=== PATIENT | female | born 1950 | race Hispanic/Latino ===

== ENCOUNTER 2019-08-13 17:35 | Observation (INO) | payer MEDICARE, MEDICAID ==
[~2019-08-13] VITALS: Ht 152.4 cm; Wt 77.3 kg
[2019-08-13] MEDS ORDERED: METFORMIN1000 MG PO (18:00)
[2019-08-13] MEDS ORDERED: MECLIZINE25 M2 PO (18:01)
[2019-08-13] MEDS ORDERED: GABAPENTIN300 M2 PO (18:01)
[2019-08-13] MEDS ORDERED: ZESTRIL5 M1 PO (18:01)
[2019-08-13] MEDS ORDERED: LIPITOR80 M1 PO (18:01)
[2019-08-13 18:02] LABS: HEMATOCRIT 44.8 % (37.0-47.0); HEMOGLOBIN 14.4 g/dl (12.0-16.0); IMMATURE GRANULOCYTES 0.2 % (0.0-5.0); MEAN CELL VOLUME 88.4 fL CALC (80.0-100.0); MEAN CORPUSCULAR HGB 28.4 pG CALC (26.0-32.0); MEAN CORPUSCULAR HGB CONC 32.1 g/L CALC (32.0-36.0); NEUT# 4.75 thou/uL (2.00-7.15); RED BLOOD COUNT 5.07 mill/uL (4.20-5.60); RED CELL DISTRI WIDTH 13.5 % (11.5-15.5)
[2019-08-13] MEDS ORDERED: ASPIRIN 81 LOW81 MG PO (18:02)
[2019-08-13] MEDS ORDERED: LEVO-T88 MCG PO (18:02)
[2019-08-13] MEDS ORDERED: NOVOLO1 SC (18:04)
[2019-08-13] MEDS ORDERED: TRULICITY1.5 MG/0.5 IJ (18:04)
[2019-08-13 18:31] LABS: ALBUMIN 4.1 g/dL (3.2-5.0); ALKALINE PHOSPHATASE 117 u/l (38-126); ANION GAP 17 (6-22 (CALC)); BILIRUBIN, TOTAL 0.4 mg/dL (0.0-1.4); BUN 13 mg/dL (8-23); BUN/CREATININE RATIO 22 (12-20 (CALC)); CARBON DIOXIDE 25 mmol/l (22-30); CHLORIDE 94 mmol/l (95-108); CREATININE 0.6 mg/dL (0.5-1.0); GFR > 60 ML/MIN (>=60 (CALC)); GFR FOR AFR.AMER. > 60 ML/MIN (>=60 (CALC)); LIPASE 247 u/l (23-300); POTASSIUM 4.3 mmol/l (3.5-5.1); SGOT/AST 21 u/l (9-36); SODIUM 132 mmol/l (137-146)
[2019-08-13 23:55] VITALS: BP 163/96
[2019-08-14 01:00] VITALS: BP 138/74
[2019-08-14 04:25] VITALS: BP 117/69
[2019-08-14 08:00] VITALS: BP 127/71
[2019-08-14 09:59] LABS: URINE BILIRUBIN - DIPSTICK NEGATIVE (NEGATIVE); URINE BLOOD DIPSTICK NEGATIVE (NEGATIVE); URINE COLOR YELLOW; URINE GLUCOSE - DIPSTICK >=1000 mg/dL (NEGATIVE); URINE KETONE NEGATIVE (NEGATIVE); URINE LEUK ESTERASE NEGATIVE (NEGATIVE); URINE NITRITE - DIPSTICK NEGATIVE (Negative); URINE PROTEIN - DIPSTICK NEGATIVE (NEG-TRACE); URINE SPECIFIC GRAVITY <=1.005; URINE UROBILINOGEN - DIPSTICK 0.2 E.U./dL (0.2)
[2019-08-14 12:00] VITALS: BP 121/70
[2020-01-31] MEDS ORDERED: CRANBERR3 PO (16:58)
[2020-01-31] MEDS ORDERED: VITAMIN7 PO (16:59)
[2020-01-31] MEDS ORDERED: PREGABALIN150 MG PO (17:00)
[2020-03-24] MEDS ORDERED: SYSTANE CONTACTS SOO OU (11:12)
[2020-03-24] MEDS ORDERED: ZADITOR0.025 % OU (11:13)
[2020-03-24] MEDS ORDERED: AZELASTINE0.1 % (11:14)
[2020-03-24] MEDS ORDERED: METAMUCIL1.7 G1 PO (11:15)
[2020-03-24] MEDS ORDERED: SOLIFENACIN SUCC5 MG PO (11:16)
== END 2019-08-14 13:00 | disposition home or self-care (01) ==
LOC: ED 17:35 → ED-I 22:56 → ED 23:09 → ICU 23:10
PROVIDERS: Family Medicine; ADMIT Internal Medicine; ATTEND Internal Medicine
DX: R07.9 Chest pain, unspecified (principal); I10 Essential (primary) hypertension; E11.40 Type 2 diabetes mellitus with diabetic neuropathy, unspecified; E78.5 Hyperlipidemia, unspecified; E03.9 Hypothyroidism, unspecified; Z79.4 Long term (current) use of insulin; Z79.82 Long term (current) use of aspirin
CPT/HCPCS: J1650; Q9967

== ENCOUNTER 2019-08-26 16:12 | Emergency (ER) | payer MEDICARE, MEDICAID ==
[~2019-08-26 16:12] MED LIST: ASPIRIN 81 LOW81 MG PO; GABAPENTIN300 M2 PO; LEVO-T88 MCG PO; LIPITOR80 M1 PO; MECLIZINE25 M2 PO; METFORMIN1000 MG PO; NOVOLO1 SC; TRULICITY1.5 MG/0.5 IJ; ZESTRIL5 M1 PO
[2019-08-26 17:01] VITALS: BP 119/76
[2020-01-31] MEDS ORDERED: CRANBERR3 PO (16:58)
[2020-01-31] MEDS ORDERED: VITAMIN7 PO (16:59)
[2020-01-31] MEDS ORDERED: PREGABALIN150 MG PO (17:00)
[2020-03-24] MEDS ORDERED: SYSTANE CONTACTS SOO OU (11:12)
[2020-03-24] MEDS ORDERED: ZADITOR0.025 % OU (11:13)
[2020-03-24] MEDS ORDERED: AZELASTINE0.1 % (11:14)
[2020-03-24] MEDS ORDERED: METAMUCIL1.7 G1 PO (11:15)
[2020-03-24] MEDS ORDERED: SOLIFENACIN SUCC5 MG PO (11:16)
== END 2019-08-26 17:20 | disposition home or self-care (01) ==
LOC: ED 16:12
DX: R05 Cough (principal); E11.9 Type 2 diabetes mellitus without complications; I10 Essential (primary) hypertension; Z79.4 Long term (current) use of insulin

== ENCOUNTER 2020-01-19 11:37 | Emergency (ER) | payer MEDICARE, MEDICAID ==
[~2020-01-19] VITALS: Ht 152.4 cm; Wt 80.0 kg
[2020-01-19] MEDS ORDERED: GABAPENTIN300 M2 PO (11:59)
[2020-01-19] MEDS ORDERED: JARDIANCE10 MG PO (11:59)
[2020-01-19] MEDS ORDERED: OXYBUTYNIN CHLOR5 M1 PO (12:00)
[2020-01-19] MEDS ORDERED: MELATONIN5 MG PO (12:00)
[2020-01-19] MEDS ORDERED: OMEPRAZOLE DR20 MG PO (12:01)
[2020-01-19] MEDS ORDERED: TRULICITY1.5 MG/0.5 IN (12:03)
[2020-01-19] MEDS ORDERED: TRESIBA FL100 UNIT/M IJ (12:04)
[2020-01-19 12:35] LABS: HEMATOCRIT 45.5 % (37.0-47.0); HEMOGLOBIN 14.4 g/dl (12.0-16.0); IMMATURE GRANULOCYTES 0.2 % (0.0-5.0); MEAN CELL VOLUME 87.8 fL CALC (80.0-100.0); MEAN CORPUSCULAR HGB 27.8 pG CALC (26.0-32.0); MEAN CORPUSCULAR HGB CONC 31.6 g/dL CAL (32.0-36.0); NEUT# 2.57 thou/uL (2.00-7.15); RED BLOOD COUNT 5.18 mill/uL (4.20-5.60); RED CELL DISTRI WIDTH 13.4 % (11.5-15.5)
[2020-01-19 12:39] LABS: URINE BILIRUBIN - DIPSTICK NEGATIVE (NEGATIVE); URINE BLOOD DIPSTICK NEGATIVE (NEGATIVE); URINE COLOR YELLOW; URINE GLUCOSE - DIPSTICK >=1000 mg/dL (NEGATIVE); URINE KETONE NEGATIVE (NEGATIVE); URINE LEUK ESTERASE NEGATIVE (NEGATIVE); URINE NITRITE - DIPSTICK NEGATIVE (Negative); URINE PROTEIN - DIPSTICK NEGATIVE (NEG-TRACE); URINE UROBILINOGEN - DIPSTICK 0.2 E.U./dL (0.2)
[2020-01-19 12:53] LABS: ALBUMIN 4.3 g/dL (3.2-5.0); ALKALINE PHOSPHATASE 116 u/l (38-126); ANION GAP 13 (6-22 (CALC)); BILIRUBIN, TOTAL 0.3 mg/dL (0.0-1.4); BUN 8 mg/dL (8-23); BUN/CREATININE RATIO 11 (12-20 (CALC)); CARBON DIOXIDE 27 mmol/l (22-30); CHLORIDE 96 mmol/l (95-108); CREATININE 0.7 mg/dL (0.5-1.0); GFR > 60 ML/MIN (>=60 (CALC)); GFR FOR AFR.AMER. > 60 ML/MIN (>=60 (CALC)); LIPASE 139 u/l (23-300); POTASSIUM 4.2 mmol/l (3.5-5.1); SGOT/AST 28 u/l (9-36); SODIUM 131 mmol/l (137-146); TOTAL PROTEIN 7.3 g/dL (6.3-8.2)
[2020-01-19] MEDS ORDERED: MIRALAX3350 N1 PO ×2 (14:36)
[2020-01-19 15:11] VITALS: BP 104/81
[2020-01-31] MEDS ORDERED: CRANBERR3 PO (16:58)
[2020-01-31] MEDS ORDERED: VITAMIN7 PO (16:59)
[2020-01-31] MEDS ORDERED: PREGABALIN150 MG PO (17:00)
[2020-03-24] MEDS ORDERED: SYSTANE CONTACTS SOO OU (11:12)
[2020-03-24] MEDS ORDERED: ZADITOR0.025 % OU (11:13)
[2020-03-24] MEDS ORDERED: AZELASTINE0.1 % (11:14)
[2020-03-24] MEDS ORDERED: METAMUCIL1.7 G1 PO (11:15)
[2020-03-24] MEDS ORDERED: SOLIFENACIN SUCC5 MG PO (11:16)
== END 2020-01-19 15:11 | disposition home or self-care (01) ==
LOC: ED 11:37
PROVIDERS: Family Medicine
DX: R10.12 Left upper quadrant pain (principal); E11.9 Type 2 diabetes mellitus without complications; I10 Essential (primary) hypertension; Z79.4 Long term (current) use of insulin
CPT/HCPCS: Q9967

== ENCOUNTER 2020-05-22 01:27 | Observation (INO) | payer MEDICARE, MEDICAID ==
[~2020-05-22] VITALS: Ht 152.4 cm; Wt 77.1 kg
[~2020-05-22 01:27] MED LIST changes: +AZELASTINE0.1 %; +CRANBERR3 PO; +JARDIANCE10 MG PO; +MELATONIN5 MG PO; +METAMUCIL1.7 G1 PO; +METFORMIN HCL1000 MG PO; -METFORMIN1000 MG PO; +MIRALAX3350 N1 PO; +OMEPRAZOLE DR20 MG PO; +OXYBUTYNIN CHLOR5 M1 PO; +PREGABALIN150 MG PO; +SOLIFENACIN SUCC5 MG PO; +SYSTANE CONTACTS SOO OU; +TRESIBA FL100 UNIT/M IJ; +TRULICITY1.5 MG/0.5 IN; +VITAMIN7 PO; +ZADITOR0.025 % OU
--- NOTE | 2020-05-22 01:31 | NUR ---
PATIENT TO ROOM 9 FOR BEDSIDE TRIAGE.
[2020-05-22 02:23] LABS: URINE BILIRUBIN - DIPSTICK NEGATIVE (NEGATIVE); URINE BLOOD DIPSTICK NEGATIVE (NEGATIVE); URINE COLOR YELLOW; URINE GLUCOSE - DIPSTICK >=1000 mg/dL (NEGATIVE); URINE KETONE NEGATIVE (NEGATIVE); URINE LEUK ESTERASE NEGATIVE (NEGATIVE); URINE NITRITE - DIPSTICK NEGATIVE (Negative); URINE PROTEIN - DIPSTICK NEGATIVE (NEG-TRACE); URINE UROBILINOGEN - DIPSTICK 0.2 E.U./dL (0.2)
[2020-05-22 02:24] LABS: HEMATOCRIT 40.9 % (37.0-47.0); HEMOGLOBIN 13.3 g/dl (12.0-16.0); IMMATURE GRANULOCYTES 0.3 % (0.0-5.0); MEAN CELL VOLUME 86.3 fL CALC (80.0-100.0); MEAN CORPUSCULAR HGB 28.1 pG CALC (26.0-32.0); MEAN CORPUSCULAR HGB CONC 32.5 g/dL CAL (32.0-36.0); NEUT# 4.12 thou/uL (2.00-7.15); RED BLOOD COUNT 4.74 mill/uL (4.20-5.60); RED CELL DISTRI WIDTH 13.8 % (11.5-15.5)
[2020-05-22 02:39] LABS: ACT PARTIAL THROMBO TIME 22.6 SECONDS (20.0-32.5); ALBUMIN 3.9 g/dL (3.2-5.0); ALKALINE PHOSPHATASE 110 u/l (38-126); AMYLASE 125 u/l (30-110); ANION GAP 12 (6-22 (CALC)); BILIRUBIN, TOTAL 0.3 mg/dL (0.0-1.4); BUN 16 mg/dL (8-23); BUN/CREATININE RATIO 21 (12-20 (CALC)); CARBON DIOXIDE 27 mmol/l (22-30); CHLORIDE 98 mmol/l (95-108); CREATININE 0.8 mg/dL (0.5-1.0); GFR > 60 ML/MIN (>=60 (CALC)); GFR FOR AFR.AMER. > 60 ML/MIN (>=60 (CALC)); INTERNATIONAL NORMALIZED RATIO 0.9 RATIO (0.7-1.3); LIPASE 916 u/l (23-300); POTASSIUM 4.3 mmol/l (3.5-5.1); PROTHROMBIN TIME 9.3 SECONDS (9.0-12.5); SGOT/AST 22 u/l (9-36); SODIUM 133 mmol/l (137-146)
--- NOTE | 2020-05-22 03:28 | NUR ---
RETURNED FROM RADIOLOGY. STEPH. SASKIA.
--- NOTE | 2020-05-22 04:20 | NUR ---
DISCUSSED ADMISSION WITH PT.
--- NOTE | 2020-05-22 05:03 | NUR ---
RESTING QUIETLY. AWAITING BED PLACEMENT.
--- NOTE | 2020-05-22 06:00 | NUR ---
NO CHANGE IN EXAM. STABLE.
--- NOTE | 2020-05-22 07:15 | NUR ---
INTRODUCED SELF TO PT. REPORTS ABD PAIN THAT HAS BEEN ONGOING FOR A WEEK, HAD AN APPT TODAY WITH HER PCP BUT PAIN WORSENED THROUGHOUT THE NIGHT. PT AOX3. RESP EVEN AND UNLABORED. SKIN WARM AND DRY. PT REPORTS [place] AND EPIGASTRIC PAIN 10/10 STABBING IN NATURE. DISCUSSED PLAN OF CARE WITH PT AND CONT WAIT IN ER FOR BED PLACEMENT. VERBALIZED UNDERSTANDIGN. CALL LIGHT WITHIN REACH. CHISEL GRINDER IN PLACE.
--- NOTE | 2020-05-22 09:56 | NUR ---
PT REQUESTING PO FLUIDS, ADVISED OF NPO STATUS PER PHYSICIAN ORDER. PT STATES "IM SHAKY, I NEED SOMETHING TO DRINK." PT REQUESTING WE CHECK HER SURGAR. BGL OBTAINED 168.
[2020-05-22 12:00] VITALS: BP 149/62
--- NOTE | 2020-05-22 12:00 | NUR ---
PT RESTING ON STRETCHER WITH EYES OPEN. RESP EVEN AND UNLABORED. SKIN WARM AN DRY. CALL LIGHT WITHIN REACH.
--- NOTE | 2020-05-22 13:30 | NUR ---
ANI MOTOR TUNE UP SPECIALIST BEDSIDE FOR EVAL. PER [place] LAW ORDER FOR ICE CHIPS BUT MAINTAIN NPO STATUS UNTIL TOMORROW. SURGICAL CONSULT FOR DR CARMONA.
--- NOTE | 2020-05-22 14:00 | NUR ---
PATIENT PROVIDED WITH ICE CHIPS PER MD VERBAL ORDER. SHE DENIES ANY NEEDS AT THIS TIME. CALL SCOTT WITHIN REACH.
--- NOTE | 2020-05-22 15:00 | NUR ---
PATIENT RESTING IN STRETCHER IN NAD AND DENIES ANY NEEDS. CALL SCOTT WITHIN REACH.
--- NOTE | 2020-05-22 15:55 | NUR ---
PT REPORTS 8/10 EPIGASTRIC ABD PAIN. PT MEDICATED WITH ZOFRAN AND MORHPINE PER MAR ORDER. ADVISED PT OF COVID SWABS PT REFUSES TO BE SWABBED FOR COVID. PT STATES SHE WILL LEAVE AMA IF SHE IS ASSIGNED A ROOM IN THE COVID WING. CHARGE NURSE KHAI MINOR INFORMED.
--- NOTE | 2020-05-22 17:30 | NUR ---
PT RESTING ON STRETCHER IN NO APPARENT DISTRESS. REPORTS PAIN LEVEL 3/10 POST PAIN MEDICATION ADMINISTRATION. MONITOR IN PLACE. CALL LIGHT GIVEN. VERALIZES NO NEEDS.
--- NOTE | 2020-05-22 19:08 | NUR ---
REPORT GIVEN TO ANGE RIDLEY. CARE RELINQUISHED AT THIS TIME.
[2020-05-22 20:00] VITALS: BP 126/61
[2020-05-23] VITALS (7 sets, daily range): BP systolic 113–136; BP diastolic 56–82
--- NOTE | 2020-05-23 07:03 | NUR ---
REPORT TO SEPTEMBER, RN
--- NOTE | 2020-05-23 07:05 | NUR ---
REPORT RECEIVED FROM KHAI CASSIDY.
--- NOTE | 2020-05-23 07:05 | NUR ---
REPORT RECEIVED FROM KHAI CASSIDY.
[2020-05-23 07:13] LABS: ALBUMIN 3.5 g/dL (3.2-5.0); ALKALINE PHOSPHATASE 83 u/l (38-126); ANION GAP 10 (6-22 (CALC)); BILIRUBIN, TOTAL 0.4 mg/dL (0.0-1.4); BUN 11 mg/dL (8-23); BUN/CREATININE RATIO 17 (12-20 (CALC)); CARBON DIOXIDE 30 mmol/l (22-30); CHLORIDE 101 mmol/l (95-108); CREATININE 0.6 mg/dL (0.5-1.0); GFR > 60 ML/MIN (>=60 (CALC)); GFR FOR AFR.AMER. > 60 ML/MIN (>=60 (CALC)); LIPASE 324 u/l (23-300); POTASSIUM 4.5 mmol/l (3.5-5.1); SGOT/AST 18 u/l (9-36); SODIUM 136 mmol/l (137-146); TOTAL PROTEIN 6.1 g/dL (6.3-8.2)
--- NOTE | 2020-05-23 09:05 | NUR ---
PT RESTING IN BED. MEDICATED AT THIS TIME. WITHHELD 40UNITS OF INSULIN, BGL 110, PT NPO AT THIS TIME. WILL CONTINUE TO MONITOR. CALL LIGHT WITHIN REACH. DENIES ANY PAIN.
--- NOTE | 2020-05-23 12:30 | NUR ---
PT WAS ABLE TO TOLERATE CLEAR LIQUIDS FOR LUNCH. VITALS STABLE. TALKING ON PHONE. ITEMS WITHIN REACH.
--- NOTE | 2020-05-23 13:20 | NUR ---
[facility]
--- NOTE | 2020-05-23 13:28 | NUR ---
PT ARRIVED TO THE FLOOR VIA BED, ACCOMPANIED BY ED STAFF. PT ALERT AND ORIENTED. RESPIRATIONS ARE EVEN AND UNLABORED ON RA. PT DENIES ANY PAIN OR DISCOMFORT AT THIS TIME. PT ORIENTED TO ROOM AND CALL SCOTT SYSTEM. PT PROVIDED WITH ICE WATER AND ENSURE CLEAR PER REQUEST. CALL SCOTT WITHIN REACH. WILL CONTINUE TO MONITOR.
--- NOTE | 2020-05-23 16:35 | NUR ---
PT RESTING IN BED, NO S/S OF DISTRESS AT THIS TIME. SAFETY PRECAUTIONS IN PLACE. WILL CONTINUE TO MONITOR.
--- NOTE | 2020-05-23 20:04 | NUR ---
PHYSICAL ASSESMENT COMPLETE. PT CURRENTLY DENIES PAIN OR DISCOMFORT. SCHEDULED MEDICATIONS AND PRN MEDICATION ADMINISTERED, SEE E-MAR. PT C/O OF HEADACHE. PT DENIES ANY NEEDS AT THIS TIME. PLAN OF CARE REVIEWED, PT DENIES QUESTIONS, VERBALIZES UNDERSTANDING. ITEMS WITHIN REACH, BED LOCKED IN LOW POSITION W/ BEDRAILS UP X2. CALL SCOTT WITHIN REACH, AGREES TO CALL PRN.
--- NOTE | 2020-05-23 23:17 | NUR ---
PT GIVEN PRN TYLENOL FOR HEADACHE. WILL CONTINUE TO MONITOR.
--- NOTE | 2020-05-24 00:04 | NUR ---
PT LAYING IN BED WITH EYES CLOSED, APPEARS TO BE SLEEPING, APPEARS COMFORTABLE AND IN NO DISTRESS. RESPIRATIONS REGULAR AND UNLABORED. ITEMS REMAIN WITHIN REACH, CALL SCOTT REMAINS WITHIN REACH. BED REMAINS LOCKED AND IN LOW POSITION WITH BEDRAILS UP X2. WILL CONTINUE TO MONITOR.
[2020-05-24 03:49] VITALS: BP 114/65
--- NOTE | 2020-05-24 03:52 | NUR ---
PT RESTING IN BED, NO SIGNS OF DISTRESS NOTED, RESP EVEN AND UNLABORED. PT VOICES NO NEEDS OR COMPLAINTS AT THIS TIME. CALL LIGHT IN REACH, CONTINUE TO MONITOR.
[2020-05-24 05:23] LABS: HEMATOCRIT 41.5 % (37.0-47.0); HEMOGLOBIN 13.3 g/dl (12.0-16.0); IMMATURE GRANULOCYTES 0.2 % (0.0-5.0); MEAN CELL VOLUME 86.8 fL CALC (80.0-100.0); MEAN CORPUSCULAR HGB 27.8 pG CALC (26.0-32.0); NEUT# 1.79 thou/uL (2.00-7.15); RED BLOOD COUNT 4.78 mill/uL (4.20-5.60); RED CELL DISTRI WIDTH 13.8 % (11.5-15.5)
[2020-05-24 05:49] LABS: ALBUMIN 3.1 g/dL (3.2-5.0); ALKALINE PHOSPHATASE 72 u/l (38-126); ANION GAP 9 (6-22 (CALC)); BILIRUBIN, TOTAL 0.4 mg/dL (0.0-1.4); BUN 10 mg/dL (8-23); BUN/CREATININE RATIO 17 (12-20 (CALC)); CARBON DIOXIDE 26 mmol/l (22-30); CHLORIDE 103 mmol/l (95-108); CREATININE 0.6 mg/dL (0.5-1.0); GFR > 60 ML/MIN (>=60 (CALC)); GFR FOR AFR.AMER. > 60 ML/MIN (>=60 (CALC)); POTASSIUM 4.1 mmol/l (3.5-5.1); SGOT/AST 16 u/l (9-36); SODIUM 134 mmol/l (137-146); TOTAL PROTEIN 5.7 g/dL (6.3-8.2)
--- NOTE | 2020-05-24 07:00 | NUR ---
REPORT RECEIVED FROM KHAI ORELLANA. PT RESTING IN BED. NO S/S OF OF DISTRESS AT THIS TIME. SAFETY PRECAUTIONS IN PLACE. WILL CONITNUE TO MONITOR.
--- NOTE | 2020-05-24 10:03 | NUR ---
PT RESTING IN BED, ALERT AND ORIENTED. RESPIRATIONS ARE EVEN AND UNLABORED ON RA. LUNGS SOUND CLEAR. PEDAL PULSES ARE STRONG. PT DENIES ANY PAIN OR DISCOMFORT AT THIS TIME. SAFETY PRECAUTIONS IN PLACE. WILL CONTINUE TO MONTIOR.
[2020-05-24 10:46] VITALS: BP 105/56
[2020-05-24] MEDS ORDERED: PROTONIX40 M2 PO (11:55)
--- NOTE | 2020-05-24 12:45 | NUR ---
PT RESTING IN BED. DISCUSSED PLAN OF CARE, PT TO BE DISCHARGED. IV #22 RH REMOVED, CATHETER INTACT. PT GETTING UP TO SHOWER BEFORE GOING HOME. SAFETY PRECAUTIONS IN PLACE. WILL CONTINUE TO MONITOR.
--- NOTE | 2020-05-24 13:43 | NUR ---
Discharge instructions given. Patient verbalizes understanding of same. Discharged in stable condition via Wheelchair to Home with staff. All belongings sent with pt.
== END 2020-05-24 13:35 | disposition home or self-care (01) ==
LOC: ED 01:27 → ED-I 04:05 → ED 04:25 → ED-I 04:26 → MS2 05-23 12:52
PROVIDERS: Nurse Practitioner; ADMIT Internal Medicine; ATTEND Internal Medicine
DX: K85.90 Acute pancreatitis without necrosis or infection, unspecified (principal); I10 Essential (primary) hypertension; E78.5 Hyperlipidemia, unspecified; E03.9 Hypothyroidism, unspecified; E11.40 Type 2 diabetes mellitus with diabetic neuropathy, unspecified; K21.9 Gastro-esophageal reflux disease without esophagitis; I25.10 Atherosclerotic heart disease of native coronary artery without angina pectoris; Z79.4 Long term (current) use of insulin; Z20.828 Contact with and (suspected) exposure to other viral communicable diseases; R07.9 Chest pain, unspecified
CPT/HCPCS: A9537; J1650; J2805; Q9967; S0164

== ENCOUNTER 2021-04-21 14:12 | Emergency (ER) | payer MEDICARE, MEDICAID ==
[~2021-04-21] VITALS: Ht 152.4 cm; Wt 77.0 kg
[~2021-04-21 14:12] MED LIST changes: +PROTONIX40 M2 PO
[2021-04-21 17:47] VITALS: BP 132/70
== END 2021-04-21 17:51 | disposition home or self-care (01) ==
LOC: ED 14:12
DX: M54.2 Cervicalgia (principal); M79.645 Pain in left finger(s); R51.9 Headache, unspecified; E11.9 Type 2 diabetes mellitus without complications; I10 Essential (primary) hypertension; W01.198A Fall on same level from slipping, tripping and stumbling with subsequent striking against other object, initial encounter; Y92.009 Unspecified place in unspecified non-institutional (private) residence as the place of occurrence of the external cause; Z79.84 Long term (current) use of oral hypoglycemic drugs; Z79.4 Long term (current) use of insulin

== ENCOUNTER 2021-09-27 20:23 | Emergency (ER) | payer MEDICARE, MEDICAID ==
[~2021-09-27] VITALS: Ht 152.4 cm; Wt 75.0 kg
[2021-09-27] VITALS (12 sets, daily range): BP systolic 92–126; BP diastolic 42–58
[2021-09-27 20:47] LABS: HEMATOCRIT 42.9 % (37.0-47.0); HEMOGLOBIN 13.9 g/dl (12.0-16.0); IMMATURE GRANULOCYTES 0.1 % (0.0-5.0); MEAN CELL VOLUME 86.5 fL CALC (80.0-100.0); MEAN CORPUSCULAR HGB CONC 32.4 g/dL CAL (32.0-36.0); NEUT# 4.87 thou/uL (2.00-7.15); RED BLOOD COUNT 4.96 mill/uL (4.20-5.60); RED CELL DISTRI WIDTH 13.9 % (11.5-15.5)
[2021-09-27 21:04] LABS: ALKALINE PHOSPHATASE 107 u/l (38-126); ANION GAP 14 (6-22 (CALC)); BILIRUBIN, TOTAL 0.5 mg/dL (0.0-1.4); BUN 15 mg/dL (8-23); BUN/CREATININE RATIO 18 (12-20 (CALC)); CARBON DIOXIDE 24 mmol/l (22-30); CHLORIDE 99 mmol/l (95-108); CREATININE 0.8 mg/dL (0.5-1.0); GFR > 60 ML/MIN (>=60 (CALC)); GFR FOR AFR.AMER. > 60 ML/MIN (>=60 (CALC)); POTASSIUM 3.8 mmol/l (3.5-5.1); SGOT/AST 36 u/l (9-36); SODIUM 133 mmol/l (137-146); TOTAL PROTEIN 6.7 g/dL (6.3-8.2)
[2021-09-27] MEDS ORDERED: VOLTAREN - GENE75 MG PO (22:52)
[2021-09-27] MEDS ORDERED: TRAMADOL HCL50 MG PO (22:52)
== END 2021-09-27 23:43 | disposition home or self-care (01) ==
LOC: ED 20:23
PROVIDERS: Family Medicine
DX: S52.122A Displaced fracture of head of left radius, initial encounter for closed fracture (principal); S52.121A Displaced fracture of head of right radius, initial encounter for closed fracture; T14.8XXA Other injury of unspecified body region, initial encounter; M54.2 Cervicalgia; I10 Essential (primary) hypertension; E11.9 Type 2 diabetes mellitus without complications; W01.0XXA Fall on same level from slipping, tripping and stumbling without subsequent striking against object, initial encounter; Z79.84 Long term (current) use of oral hypoglycemic drugs; Z79.4 Long term (current) use of insulin